=== PATIENT | female | born 1980 | race Caucasian/White ===

== ENCOUNTER 2018-01-30 17:14 | Inpatient (IN) ==
[2018-01-30 12:22] LABS: Bilirubin,Urine Negative (Negative); Blood,Urine Negative (Negative); Clarity,Urine Cloudy (Clear); Color,Urine Dark Yellow (Yellow); Glucose,Urine (UA) 100 mg/dL (Normal); Ketones,Urine 15 mg/dL (Negative); Leukocyte Esterase,Urine Negative (Negative); Nitrite,Urine Negative (Negative); PH,Urine 5.5 pH Units (5.0-8.0); Protein,Urine 30 mg/dL (Neg-Trace); Specific Gravity,Urine 1.023 (1.010-1.025); Urobilinogen,Urine Normal (Normal)
[2018-01-30 12:24] LABS: Bacteria,Urine Many per hpf (None-Few); Hyaline Casts,Urine Few per lpf (None-Few); Squamous Epithelial Cell,Urine Many per lpf (None-Few); WBC,Urine 15-30 per hpf (0-3)
[2018-01-30 12:34] LABS: Calcium Oxalate Crystals,Urine Present
--- NOTE | 2018-01-30 12:35 | OB/GYN History & Physical ---
Date of Encounter: 01/30/18 Time of Encounter: 12:28 Assessment and Plan (1) 36 weeks gestation of Current visit: Yes Status: Acute One late deceleration noted on EFM. Plan for prolonged monitoring. If decelerations recur, pt will likely require delivery today. Dr. Cadena notified. (2) complicated by cleft lip Current visit: Yes Status: Acute Qualifiers: Fetus number: single or unspecified fetus Qualified Code(s): O35.8XX0 - Maternal care for other (suspected) abnormality and damage, not applicable or unspecified (3) Tobacco abuse Current visit: Yes Status: Acute (4) GDM (gestational diabetes mellitus), class A1 Current visit: Yes Status: Acute Well controlled with diet. (5) Previous delivery affecting Current visit: Yes Status: Acute Pt last ate at 0930. Pt will need delivery if decelerations persist or if cervical change is noted on repeat exam. (6) Antibody to blood group S antigen positive Current visit: Yes Status: Acute titres negative (7) Positive GBS test Current visit: Yes Status: Acute History of Present Illness Chief complaint: contractions HPI: Ms. Napoles is a 37 year old female presenting at 36w3d with c/o contractions since 1700 last evening. She reports the contractions are irregular every 7-20 minutes. This is complicated by history of prior delivery x2, AMA, S and KNS antibodies, tobacco use, cleft lip and possibly cleft palate, A1GDM, and GBS positive status. Pt reports that she was seen by MFM last week and they told her she could stop checking her blood sugars because they have been so good. She did have progenity cell free DNA that was normal. Blood type A positive Rubella immune Serologies negative GBS negative Past Med Surg Social Fam HX - Past Medical History Medical history: no medical history Psychiatric history: no psych history - Past Surgical History Surgical History: - Social History Smoking Status: Current some day smoker Smokeless Tobacco Status: No Alcohol use: none Drug use: none - Family History Mother Age: 75 Living Status: Still Living Hx Family Cardiac Disorders: No Hx Family Respiratory Disorders: No Hx Family Cancer: No Hx Family GI Disorders: No Hx Family Genitourinary Disorders: No Hx Family Endocrine Disorder: No Hx Family Musculoskeletal Disorders: No Hx Family Neuromuscular Disorders: No Hx Family Neurologic Disorders: No Hx Family HEENT Disorders: No Hx Family Autoimmune Disorders: No Hx Family Reproductive Disorders: No Hx Family Psychosocial Disorders: No Hx Family Medical Disorders: No Obstetrical History - Pregnancies : 3 Para: 2 Term: 2 : 0 Ab's: 0 Livin - History/Complications History/Complications: prior deliveries x2 Medications and Allergies Vit No.129/Iron/FA [ Tablet] 1 each PO DAILY 01/30/18 [History] 3 Allergy/AdvReac Type Severity Reaction Status Date / Time Penicillins Allergy Rash Verified 05/06/16 12:26 Sulfa (Sulfonamide Allergy Rash Verified 05/06/16 12:26 Antibiotics) Review of System OB All systems PM: reviewed and no additional remarkable complaints except as stated Exam - Constitutional Constitutional: well developed, well nourished, no acute distress - HEENT HEENT: Mucus Membranes Moist - Lungs Respiratory exam: CTAB - Cardiovascular Cardiovascular exam: RRR - Abdomen Abdomen: Present: gravid, non tender - Extremities Extremities exam: normal inspection - Cervix Dilation: 0 (per RN) - Anus/Rectum Anus/Rectum: Present: normal perianal skin Results Abnormal lab results Urine Clarity Cloudy (Clear) A 01/30/18 12:00 Urine Protein 30 mg/dL (Neg-Trace) H 01/30/18 12:00 Urine Glucose (UA) 100 mg/dL (Normal) H 01/30/18 12:00 Urine Ketones 15 mg/dL (Negative) H 01/30/18 12:00 All other labs normal. - VTE Reasons for not Prescribing Prophylaxis: Treatment not Indicated - Low risk for VTE
[2018-01-30 12:41] LABS: Amphetamine Screen,Urine Negative ng/mL (Cutoff=1000); Barbiturate Screen,Urine Negative ng/mL (Cutoff=200); Benzodiazepines Screen,Urine Negative ng/mL (Cutoff=200); Cannabinoid Screen,Urine Negative ng/mL (Cutoff = 50); Cocaine Screen,Urine Negative ng/mL (Cutoff= 300); Opiate Screen,Urine Negative ng/mL (Cutoff=300); Phencyclidine Screen,Urine Negative ng/mL (Cutoff=25)
[2018-01-30 13:07] LABS: Basophils % 0.3 %; Eosinophils # 0.1 K/mcL (0.0-0.6); Eosinophils % 0.4 %; Hematocrit 39.9 % (35.3-44.9); Hemoglobin 13.3 g/dL (11.5-15.4); Immature Granulocytes % 0.7 % (0-4); Lymphocytes # 1.5 K/mcL (0.6-4.6); Lymphocytes % 12.1 %; Mean Corpuscular HGB Conc 33.3 g/dL (31.6-35.5); Mean Platelet Volume 13.3 fL (9.4-12.4); Monocytes # 0.8 K/mcL (0.0-1.3); Neutrophils # 9.6 K/mcL (1.6-8.9); Platelet Count 163 K/mcL (140-400); Red Blood Count 4.29 M/mcL (3.82-4.97); Red Cell Distribution Width 13.7 % (11.5-14.5); Segmented Neutrophils % 79.5 %
[~2018-01-30 17:14] MED LIST: Clindamycin 900 MG/50 ML 900 MG/50 ML IV.SOLN IVPB ONE; Famotidine 20 MG/2 ML VIAL IVP ONE; Metoclopramide 10 MG/2 ML VIAL IVP ONE; Ringers Solution, Lactated 1,000 ML IVC ONE; Ringers Solution, Lactated 1,000 ML IVC SCH
[2018-01-30] MEDS ORDERED: Dexamethasone 4 MG/ML VIAL ONE (17:29)
[2018-01-30] MEDS ORDERED: Ondansetron 4 MG/2 ML VIAL ONE (17:29)
[2018-01-30] MEDS ORDERED: *HR* Propofol 200 MG/20 ML VIAL IVP ONE ×2 (17:29→17:36)
[2018-01-30] MEDS ORDERED: *HR* Oxytocin 10 UNIT/ML VIAL IM ONE ×2 (17:29→17:37)
[2018-01-30] MEDS ORDERED: *HR* Succinylcholine 200 MG/10 ML VIAL IVP ONE (17:29)
[2018-01-30] MEDS ORDERED: *HR* FentaNYL (PF) 100 MCG/2 ML VIAL ONE (17:38)
[2018-01-30] MEDS ORDERED: *HR* Morphine 2 MG/ML SYRINGE IVP PRN (17:39)
--- NOTE | 2018-01-30 17:53 | Anesthesia Evaluation PreOp ---
Date of Encounter: 01/30/18 Time of Encounter: 15:09 - Past History Planned Operation: repeat c section with bps for non reassuring heart trac Cardiac History: Denies any Significant Hx Pulmonary History: Smoker (only occasionally smokes while . 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 no FHAP.) : Yes Alcohol Use: none Drug use: none Medications and Allergies Vit No.129/Iron/FA [ Tablet] 1 each PO DAILY 01/30/18 [History] 3 Allergy/AdvReac Type Severity Reaction Status Date / Time Penicillins Allergy Rash Verified 05/06/16 12:26 Sulfa (Sulfonamide Allergy Rash Verified 05/06/16 12:26 Antibiotics) - Meds/Allergy Pre-op Review Medications Reviewed: Yes Allergies Reviewed: Yes Beta Blockers on Current Med List: No Anesthesia Results - Labs 01/30/18 12:42 Anesthesia Exam VSS Height: 1.6m Weight: 79kg NPO (# of Hours): 8 Pain Scale: 0 Pain Scale Used: Numeric (1 - 10) - HEENT Pupil (Motor): Pupils equal Mallampati: II Teeth: Normal Oral Opening: Greater than 3 - 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
[2018-01-30] MEDS ORDERED: Ondansetron 4 MG/2 ML VIAL IVP ONE (17:55)
[2018-01-30] MEDS ORDERED: *HR* HYDROmorphone (PF) 1 MG/ML SYRINGE IVP PRN (17:55)
[2018-01-30] MEDS ORDERED: *HR* Promethazine 25 MG/ML VIAL IVP PRN (17:55)
[2018-01-30] MEDS ORDERED: Acetaminophen IV 1,000 MG/100 ML INFUS..BTL IVPB ONE (17:55)
[2018-01-30] MEDS ORDERED: Sennosides 8.6 MG TABLET PO PRN (18:04)
[2018-01-30] MEDS ORDERED: Ondansetron 4 MG/2 ML VIAL IVP PRN (18:04)
[2018-01-30] MEDS ORDERED: Metoclopramide 10 MG/2 ML VIAL IVP PRN (18:04)
[2018-01-30] MEDS ORDERED: *HR* Morphine 30 MG/ 30 ML PCA IVC PRN (18:04)
[2018-01-30] MEDS ORDERED: Ringers Solution, Lactated 1,000 ML ONE (18:28)
[2018-01-30] MEDS: Oxytocin 20 units/ LR 1000 mL 20 UNIT/1,000 ML BAG IVC SCH (19:07)
--- NOTE | 2018-01-30 20:38 | Event Note ---
Date of Encounter: 01/30/18 Time of Encounter: 17:12 Called to the patient's bedside for heart tone decelerations. Late in quality lasting 3-4 minutes with spontaneous return to baseline. Patient becoming more uncomfortable with her contractions. History of previous section. Patient with complicated medical history. Discussed recommendation for emergent delivery and need for general anesthesia. Patient reports desire to have a tubal ligation, insurance confirmed. Informed consent obtained to proceed with repeat section and bilateral partial salpingectomy. Anesthesia aware and present. Nursery staff notified. Patient readied and taken to the operating room
--- NOTE | 2018-01-30 20:47 | OB/GYN Procedure Note ---
Section - Date of procedure: 01/30/18 Preop diagnosis: desires repeat , category 2 FHT tracing, desires sterilization Post-op diagnosis: same (Omental adhesions, short cord, nuchal cord) Procedure: section (Emergent), repeat low transverse, bilateral tubal ligation, other (Adhesiolysis) Surgeon: Roseline Garcia Blood Loss: 300 Was there an public aid eligibility assistant present: No Anesthesiologist: Carmelo Marks Process Development Associate: Sapna Dewey Anesthesia Type: General section complications: none Disposition: L&D Recovery Room Specimens: Placenta, Cord segment, Cord blood, Right tube segment, Left tube segment - Infant (s) A Infant Delivery Date: 01/30/18 Delivery Time: 17:25 Presentation: vertex Position: unknown Route of delivery: other (Emergency section) Gender: Female Viability: Viable Pounds: 5 Ounces: 11 Gram Weight: 2.57 kg at 1 minute: 8 at 5 minutes: 9 Shoulder Dystocia: not encountered Specimens collected: cord blood Placenta: spontaneous, uterine exploration Cord: nuchal cord, 3 umbilical vessels, other (Short cord), nuchal reduced - Narrative Narrative: The patient was taken to the operating room and prepped with Betadine and draped in the usual sterile fashion. Emergency timeout was completed. The patient was given general anesthesia adequate for abdominal surgery. A Pfannenstiel skin incision was sharply dissected down to the fascia through the previous scar. The fascia was sharply dissected with scalpel in the midline and bluntly extended bilaterally. The rectus muscles were bluntly bisected and the peritoneum was bluntly entered. The incision was then bluntly extended. Bladder blade was placed to protect the bladder. Peritoneal bladder reflection incized with metzenbaum scissors and reflected inferiorly. A low transverse incision was then made with the scalpel, down to the amnion and bluntly extended bilaterally. The amnion was then entered with Allis clamps. Clear fluid seen. The vigorous infant was then delivered after nuchal cord reduced, cord was clamped and cut and the was handed to the nursery care team. Cord segment was obtained for gases, need for which would be determined later. Cord blood obtained. The placenta was delivered spontaneous and intact. It was sent to pathology. The uterine cavity was digitally inspected and noted to be free of any retained products of conception. The uterine cavity is wiped clean with a moist lap sponge. Clamps were placed on the uterine incision. The cervix was dilated with a ring forcep was then discarded off the field. The incision was then closed using 0 Vicryl suture in a running locking fashion. This incision was then closed with a second 0 Vicryl suture in an imbricating fashion. Good hemostasis was noted. Gloves were changed. Tubes and ovaries were inspected and found to be grossly normal. The left fallopian tube was identified along the fimbriated end, grasped with the Anya clamp and doubly ligated with O-plain suture. The loop of tube was excised with Metzenbaum scissors. Tubal lumens were identified to be hemostatic bilaterally. This was repeated for the patient's right side. Good hemostasis was noted. The abdomen was then irrigated copiously with sterile water. Anterior omental adhesions lysed and hemostasis assured. Peritoneal edges and rectus muscles were inspected and good hemostasis was achieved. The fascia was closed using an 0 PDS loop in a running nonlocking fashion. Subcutaneous tissues tissue were irrigated with sterile water and hemostasis was achieved. The skin was closed with 4-0 Monocryl in a subcuticular fashion. Dermabond dressing was placed. All sponge and instrument counts were correct at the end of the procedure. Tineo was noted to be draining clear yellow urine at the end of the procedure. Patient was then extubated and taken to recovery room in stable condition
--- NOTE | 2018-01-30 21:11 | Anesthesia Evaluation Post Op ---
Date of Encounter: 01/30/18 Time of Encounter: 19:10 - Vital Signs Vital Signs: VSS throughout PACU syay. - Lungs Lungs: Clear Ascult./Percussion - Airway Airway: Non-obstructed - Cardiovascular Regular Rate - Mental Status Mental Status: Alert & Oriented, Answers Appropriately - Pain Pain Scale: 4 Pain Scale used: Numeric (1 - 10) - Nausea Vomiting Nausea Vomiting: Present (no emesis, intermittant nausea.) - Hydration Hydration: NPO, Tineo catheter - Discharge PostOp Status: Transfer Patient to floor
[2018-01-30] MEDS: Ibuprofen 600 MG TABLET PO PRN (21:18)
[2018-01-31] MEDS: Oxytocin 20 units/ LR 1000 mL 20 UNIT/1,000 ML BAG IVC SCH (04:20)
[2018-01-31 04:36] LABS: Basophils % 0.2 %; Hematocrit 34.1 % (35.3-44.9); Immature Granulocytes % 0.6 % (0-4); Lymphocytes # 1.3 K/mcL (0.6-4.6); Lymphocytes % 8.2 %; Mean Corpuscular Hemoglobin 31.9 pg (28.0-33.3); Mean Corpuscular Volume 93.7 fL (83.0-100.0); Monocytes # 0.8 K/mcL (0.0-1.3); Monocytes % 5.2 %; Neutrophils # 13.3 K/mcL (1.6-8.9); Platelet Count 149 K/mcL (140-400); Red Blood Count 3.64 M/mcL (3.82-4.97); Red Cell Distribution Width 13.6 % (11.5-14.5); Segmented Neutrophils % 85.8 %
[2018-01-31 04:44] LABS: Hemoglobin 11.6 g/dL (11.5-15.4)
[2018-01-31] MEDS: Prenatal Vit/FA 1 EACH TABLET PO SCH (08:15)
[2018-01-31] MEDS ORDERED: *HR* OxyCODONE/APAP 5/325 TABLET PO PRN (09:16)
--- NOTE | 2018-01-31 09:20 | OB/GYN Progress Note ---
Date of Encounter: 01/31/18 Time of Encounter: :18 Subjective - Subjective Principal diagnosis: Unscheduled R C/S and Tubal Interval history: S/P Delivery Day 1 Pain is well controlled Lochia is light and without clots VSS Tolerating regular diet, passing flatus Voiding without difficulty Discharge home tomorrow Patient reports: appetite normal, voiding normally, pain well controlled, ambulating normally [place]: doing well, other (Breast and Bottle feeding), bottle feeding Objective - Vital Signs Latest vital signs: Vital Signs Temp Pulse Resp BP Pulse Ox 01/31/18 08:24 97.8 F 74 16 104/68 97 01/31/18 04:15 98.0 F 77 18 112/74 96 01/31/18 01:00 98.5 F 83 14 111/74 96 01/30/18 23:45 98.6 F 88 18 129/78 96 01/30/18 22:45 98.6 F 90 16 114/74 96 01/30/18 21:45 98.2 F 82 18 138/83 96 01/30/18 21:15 97.9 F 87 16 121/76 96 01/30/18 20:45 98.9 F 78 16 126/83 96 Intake and Output 01/30/18 01/31/18 01/31/18 23:59 07:59 15:59 Intake Total 100 / 100 1000 / 1000 Output Total 700 / 700 300 / 300 Balance 100 / 100 300 / 300 -300 / -300 Intake: IV Fluids 100 / 100 1000 / 1000 Pitocin 20 unit In 1,000 ml @ 1000 / 1000 125 mls/hr IVC .Q8H [facility] Rx#: [id number] Ofirmev 1,000 mg/100 ml 1,000 100 / 100 mg In 100 ml @ 400 mls/hr IVPB ONCE ONE Rx#:[id number] Output: Urine 300 / 300 300 / 300 Catheter 400 / 400 Other: Weight 77.8 kg 78.3 kg Patient Weight 01/31/18 23:59 Weight 78.3 kg - Exam Lungs: bilateral: normal Chest: Normal S1, Normal S2 Extremities: Present: normal Abdomen: Present: normal appearance, soft. Absent: gravid Incision: Present: normal, dry, intact Uterus: Present: normal, firm Fundal Height: 0 (@U) - Labs Labs: Laboratory Results - last 24 hr 01/30/18 01/30/18 01/30/18 12:00 12:00 12:42 WBC 12.0 H RBC 4.29 Hgb 13.3 Hct 39.9 MCV 93.0 MCH 31.0 MCHC 33.3 RDW 13.7 Plt Count 163 MPV 13.3 H Immature Gran % 0.7 Seg Neutrophils % 79.5 Lymphocytes % 12.1 Monocytes % 7.0 Eosinophils % 0.4 Basophils % 0.3 Neutrophils # 9.6 H Lymphocytes # 1.5 Monocytes # 0.8 Eosinophils # 0.1 Basophils # 0.0 Urine Color Dark Yellow Urine Clarity Cloudy A Urine pH 5.5 Ur Specific [place] 1.023 Urine Protein 30 H Urine Glucose (UA) 100 H Urine Ketones 15 H Urine Blood Negative Urine Nitrite Negative Urine Bilirubin Negative Urine Urobilinogen Normal Ur Leukocyte Esterase Negative Urine Microscopic RBC 5-15 H Urine Microscopic WBC 15-30 H Ur Squamous Epith Cells Many H Calcium Oxalate Crystal Present Urine Bacteria Many H Hyaline Casts Few Ur Culture Indicated? NO Urine Opiates Screen Negative Ur Barbiturates Screen Negative Ur Phencyclidine Scrn Negative Ur Amphetamines Screen Negative U Benzodiazepines Scrn Negative Urine Cocaine Screen Negative U Marijuana (THC) Screen Negative Ur Drug Screen Interp See Below Hep Bs Antigen 01/30/18 01/31/18 20:21 04:05 WBC 15.5 H RBC 3.64 L Hgb 11.6 D Hct 34.1 L MCV 93.7 MCH 31.9 MCHC 34.0 RDW 13.6 Plt Count 149 MPV 13.0 H Immature Gran % 0.6 Seg Neutrophils % 85.8 Lymphocytes % 8.2 Monocytes % 5.2 Eosinophils % 0.0 Basophils % 0.2 Neutrophils # 13.3 H Lymphocytes # 1.3 Monocytes # 0.8 Eosinophils # 0.0 Basophils # 0.0 Urine Color Urine Clarity Urine pH Ur Specific [place] Urine Protein Urine Glucose (UA) Urine Ketones Urine Blood Urine Nitrite Urine Bilirubin Urine Urobilinogen Ur Leukocyte Esterase Urine Microscopic RBC Urine Microscopic WBC Ur Squamous Epith Cells Calcium Oxalate Crystal Urine Bacteria Hyaline Casts Ur Culture Indicated? Urine Opiates Screen Ur Barbiturates Screen Ur Phencyclidine Scrn Ur Amphetamines Screen U Benzodiazepines Scrn Urine Cocaine Screen U Marijuana (THC) Screen Ur Drug Screen Interp Hep Bs Antigen Nonreactive
[2018-01-31] MEDS: Ibuprofen 600 MG TABLET PO PRN (15:23)
[2018-01-31] MEDS: Simethicone 80 MG TAB.CHEW PO PRN (20:38)
[2018-02-01] MEDS: Prenatal Vit/FA 1 EACH TABLET PO SCH (08:11)
[2018-02-01] MEDS: Simethicone 80 MG TAB.CHEW PO PRN (08:11)
[2018-02-01] MEDS: Ibuprofen 600 MG TABLET PO PRN (08:15)
[2018-02-01 08:49] VITALS: BP 126/78
--- NOTE | 2018-02-01 09:36 | Discharge Summary ---
Date of Encounter: 02/01/18 Time of Encounter: 09:17 - Discharge Diagnosis (1) Status post section Priority: Primary Status: Acute Comments: OARRS reviewed prior to discharge with narcotics for post section pain control S/P Repeat Delivery Day 2 Pain is well controlled Lochia is light and without clots VSS Tolerating regular diet, passing flatus Voiding without difficulty Discharge home today - Discharge Medications Prescriptions: Ibuprofen [Motrin] 600 mg PO Q6HR PRN #30 tablet PRN Reason: Cramping OxyCODONE/APAP 5/325 [Percocet 5/325 MG] 1 each PO Q6HR PRN 7 Days #28 tablet PRN Reason: Pain Breast Pump [BREAST PUMP] 1 each .ROUTE AD #1 each Docusate [Colace] 100 mg PO BID #30 capsule Ferrous Sulfate 325 mg PO DAILY@0800 #90 tablet Home Medications: Breast Pump [BREAST PUMP] 1 each .ROUTE AD #1 each 02/01/18 [Rx] Docusate [Colace] 100 mg PO BID #30 capsule 02/01/18 [Rx] Ferrous Sulfate 325 mg PO DAILY@0800 #90 tablet 02/01/18 [Rx] Ibuprofen [Motrin] 600 mg PO Q6HR PRN #30 tablet 02/01/18 [Rx] OxyCODONE/APAP 5/325 [Percocet 5/325 MG] 1 each PO Q6HR PRN 7 Days #28 tablet [Rx] Vit/FA 1 each PO DAILY tablet 02/01/18 [Rx] Simethicone [Gas-X] 80 mg PO TID PRN tab.chew 02/01/18 [Rx] Allergies/Adverse Reactions: 3 Allergy/AdvReac Type Severity Reaction Status Date / Time Penicillins Allergy Rash Verified 05/06/16 12:26 Sulfa (Sulfonamide Allergy Rash Verified 05/06/16 12:26 Antibiotics) Data Procedures and tests throughout hospitalization: Laboratory Tests 01/30/18 01/30/18 01/30/18 12:00 12:00 12:42 WBC 12.0 H RBC 4.29 Hgb 13.3 Hct 39.9 MCV 93.0 MCH 31.0 MCHC 33.3 RDW 13.7 Plt Count 163 MPV 13.3 H Immature Gran % 0.7 Seg Neutrophils % 79.5 Lymphocytes % 12.1 Monocytes % 7.0 Eosinophils % 0.4 Basophils % 0.3 Neutrophils # 9.6 H Lymphocytes # 1.5 Monocytes # 0.8 Eosinophils # 0.1 Basophils # 0.0 Urine Color Dark Yellow Urine Clarity Cloudy A Urine pH 5.5 Ur Specific [place] 1.023 Urine Protein 30 H Urine Glucose (UA) 100 H Urine Ketones 15 H Urine Blood Negative Urine Nitrite Negative Urine Bilirubin Negative Urine Urobilinogen Normal Ur Leukocyte Esterase Negative Urine Microscopic RBC 5-15 H Urine Microscopic WBC 15-30 H Ur Squamous Epith Cells Many H Calcium Oxalate Crystal Present Urine Bacteria Many H Hyaline Casts Few Ur Culture Indicated? NO Urine Opiates Screen Negative Ur Barbiturates Screen Negative Ur Phencyclidine Scrn Negative Ur Amphetamines Screen Negative U Benzodiazepines Scrn Negative Urine Cocaine Screen Negative U Marijuana (THC) Screen Negative Ur Drug Screen Interp See Below Hep Bs Antigen 01/30/18 01/31/18 20:21 04:05 WBC 15.5 H RBC 3.64 L Hgb 11.6 D Hct 34.1 L MCV 93.7 MCH 31.9 MCHC 34.0 RDW 13.6 Plt Count 149 MPV 13.0 H Immature Gran % 0.6 Seg Neutrophils % 85.8 Lymphocytes % 8.2 Monocytes % 5.2 Eosinophils % 0.0 Basophils % 0.2 Neutrophils # 13.3 H Lymphocytes # 1.3 Monocytes # 0.8 Eosinophils # 0.0 Basophils # 0.0 Urine Color Urine Clarity Urine pH Ur Specific [place] Urine Protein Urine Glucose (UA) Urine Ketones Urine Blood Urine Nitrite Urine Bilirubin Urine Urobilinogen Ur Leukocyte Esterase Urine Microscopic RBC Urine Microscopic WBC Ur Squamous Epith Cells Calcium Oxalate Crystal Urine Bacteria Hyaline Casts Ur Culture Indicated? Urine Opiates Screen Ur Barbiturates Screen Ur Phencyclidine Scrn Ur Amphetamines Screen U Benzodiazepines Scrn Urine Cocaine Screen U Marijuana (THC) Screen Ur Drug Screen Interp Hep Bs Antigen Nonreactive Date of admission: 01/30/18 17:14 Primary care physician: Ayaz Sanabria MD Discharging clinician: Priyanka Foote Anticipated date of discharge: 02/01/18 - Patient Status Disposition: Home, Self-Care Condition: Good Functional capacity at discharge: independent ambulation Overall status at discharge: patient is progressing back to baseline - Discharge Instructions Follow Up With: Ayaz Sanabria MD [Primary Care Provider] - Roseline Cadena MD [Partnered Physician] - - Diet and Activity Activity: increase activity as tolerated Diet: advance to your usual diet Hospital Course Reason for admission: section Delivery: section Episiotomy: none Other procedures: none complications: none Discharge diagnosis: IUP at term delivered baby: female Time Spent: Less than 30 minutes - VTE Reasons for not Prescribing Prophylaxis: Treatment not Indicated - Low risk for VTE Documentation of Mechanical Device: Intermittent pneumatic compression device - Attending Attestation I examined this patient and my medical decision-making was reviewed with the Resident Physician. I agree with the documented findings, disposition and treatment plan as described except to the extent set forth below. Flakita Foote CNM Exam - Constitutional Vitals: Temp Pulse Resp BP Pulse Ox 98.0 F 88 16 126/78 97 02/01/18 08:49 02/01/18 08:49 02/01/18 08:49 02/01/18 08:49 02/01/18 08:49 General appearance IM: A&O X 3, pleasant, no acute distress - Respiratory Respiratory exam: Present: CTAB. Absent: accessory muscle use - Cardiovascular Cardiovascular exam IM: Present: RRR, +S1, +S2 - GI/Abdominal GI/Abdominal exam IM: soft, no peritoneal signs Incision: dressed - Rectal Rectal exam: deferred - Uterine Tone: Firm Uterus Position: At Umbilicus, Midline - Extremities Exam Extremities exam IM: Present: full ROM - Neurological Exam Neurological exam: alert, CN II-XII intact, oriented X3
== END 2018-02-01 11:30 | disposition home or self-care (01) | DRG 765 ==
LOC: 1NENULAB → 1NENUOBS 20:42
PROVIDERS: ADMIT Obstetrics & Gynecology; ATTEND Obstetrics & Gynecology